=== PATIENT | male | born 1955 | race Caucasian/White ===

== ENCOUNTER 2016-06-10 09:33 | Emergency (ER) | payer MEDICARE, OTHER ==
[~2016-06-10] VITALS: Ht 190.5 cm; Wt 104.5 kg
[~2016-06-10 09:33] MED LIST: ACET-171 PO; ATEN100T PO; BUDE10.2 INHALATION; CALC-235 PO; CHOL400T2 PO; CLOB0.5P MC; CLOB50SO TP; DIPH50C PO; DOCU250C2 PO; HYDR30CR53 RC; KETO200S2 TOP; KLO2T PO; KLO5T PO; LATA2.5D6 OP; LEVA0.318 INHALATION; MONT10TA23 PO; PRIM50TA PO; RABE20TA27 PO; RANI150C4 PO; SENN-153 PO; SERT100T9 PO; SIMV10TA4 PO
[2016-06-10 09:38] VITALS: BP 123/77; PULSE 73; RESP 18; O2SAT 96
[2016-06-10 11:15] LABS: BASOPHILS % (AUTO) 0.4 % (0-3); EOSINOPHILS % (AUTO) 4.5 % (0-5); MONOCYTES % (AUTO) 10.5 % (4-12); Mean Corpuscular Hemoglobin 29.4 pg (27.0-35.0); Mean Corpuscular Volume 85.6 fL (81-100); NEUTROPHILS % (AUTO) 52.2 % (40-74); Platelet Count 242 bil/L (150-400)
[2016-06-10 11:39] LABS: Magnesium 2.1 mg/dL (1.6-2.6)
--- NOTE | 2016-06-10 11:40 | DRSVH ---
PROCEDURE: X-RAY CHEST ONE VIEW, PORTABLE ([id number]) INDICATIONS: possible pneumonia TECHNIQUE: One view of the chest was acquired. COMPARISON: 05/02/2015 FINDINGS: Surgical changes and devices: None. Lungs and pleura: No pleural effusions or pneumothorax. Lungs are clear. Mediastinum: Mediastinal contours appear normal. Heart size is normal. There is probable pericardia l scarring on the right as before. Bones and chest wall: No suspicious bony lesions. Overlying soft tissues appear unremarkable. IMPRESSION: No acute cardiopulmonary abnormality. No pulmonary infiltrates. Dictated by: Shaheen Rosales M.D. on 06/10/2016 at 11:37 Approved by: Shaheen Rosales M.D. on 06/10/2016 at 11:38
[2016-06-10 12:07] VITALS: BP 112/73; PULSE 54; RESP 16; O2SAT 96
--- NOTE | 2016-06-10 13:25 | ED.REPORT ---
HPI-Extremity Problem Lower Date of Service Jun 10, 2016 ED Provider: Benedict Ocampo MD 61yoM with COPD, IBS, GERD and an undiagnosed neurologic condition presents with increasing bilateral leg weakness since 06/05/2016. The patient states that he has had bilateral leg weakness in the past for which he wears foot drop bracing and walks with a walker at baseline. The patient states that he also has left hand issues which involve very poor coordination and jerking movement. 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 intervention which resulted in significantly recovered neurologic function. The patient states that [facility] and was [facility] by the last neurologist because he had numerous tests performed including imaging and EMG without a diagnosis. The patient states that [facility] evaluation of his leg weakness. The patient also has fibromyalgia and states that his current pain level is similar. The patient also describes a cough which he states is chronic in nature due to his COPD. Nursing Notes Stated Complaint: LEG WEAKNESS Chief Complaint: Neuro Symptoms/ Deficits Nursing Notes Reviewed: Yes Allergies: Coded Allergies: amitriptyline (Verified Allergy, Severe, Hallucinations, 05/03/15) dextromethorphan (Verified Allergy, Severe, 05/03/15) patient unsure of reaction guaifenesin (Verified Allergy, Severe, 05/03/15) Patient states there was a reaction with some of his other medications and taking guaifenesin with those other meds caused short term memory loss ibuprofen (Verified Allergy, Severe, Hives, 05/03/15) GI upset metoclopramide (Verified Allergy, Severe, 05/03/15) SEIZURES morphine (Verified Allergy, Severe, hives, redness locally, 05/03/15) tramadol (Verified Allergy, Severe, 05/03/15) GI upset tramadol HCl (Verified Allergy, Intermediate, 05/03/15) GI upset NSAIDS (Non-Steroidal Anti-Inflamma (Verified Allergy, Mild, 05/03/15) GI upset, hives aspirin (Verified Allergy, Mild, 05/03/15) GI, bleeding ulcer. Patient states that he took a coated ASA prior to being admitted on 05/03/15 and didn't have any problems, as long as ASA is not terminal supervisor therapy. dicyclomine (Verified Allergy, Mild, 05/03/15) Patient unsure of reaction pregabalin (Verified Adverse Reaction, Severe, diarrhea, 05/03/15) lorazepam (Verified Adverse Reaction, Unknown, anxiety, 06/10/16) Scheduled Acetaminophen (Acetaminophen) 500 Mg Tablet 1,000 MG PO TID Atenolol (Atenolol) 100 Mg Tablet 100 MG PO DAILY Budesonide/Formoterol 80-4.5 mcg Inh (Symbicort 80-4.5 mcg Inh) 120 Puff Inhaler 2 PUFF INHALATION BID Calcium Carbonate/Vitamin D3 (Calcium 250+D Tablet) 1 Each Tablet 2 EACH PO BID Cholecalciferol (Vitamin D3) (Delta D3) 400 Unit Tablet 2,000 UNIT PO DAILY Clobetasol Propionate (Clobetasol Propionate) 0.5 Gm Powder 0.5 GM MC BID Clonazepam (Clonazepam) 0.5 Mg Tablet 0.5 MG PO MORNING Clonazepam (Clonazepam) 0.5 Mg Tablet 0.5 MG PO DAILYWL Clonazepam (Clonazepam) 2 Mg Tablet 2 MG PO QPM Diphenhydramine Hcl (Benadryl) 50 Mg Capsule 25-50 MG PO Q6H Docusate Sodium (Docusate Sodium) 250 Mg Capsule 250 MG PO BID Hydrocortisone (Hydrocortisone) 30 Gm Cream..g. 30 GM RC BID Ketoconazole (Nizoral A-D) 200 Ml Shampoo 1 APPL TOP DAILY Latanoprost (Latanoprost) 2.5 Ml Drops 1 GTT OP HS Montelukast (Montelukast) 10 Mg Tablet 10 MG PO DAILY Primidone (Primidone) 50 Mg Tablet 100 MG PO BID Rabeprazole DR (Rabeprazole DR) 20 Mg Tablet 40 MG PO BID Ranitidine (Ranitidine) 150 Mg Capsule 150 MG PO HS Sennosides (Evac-U-Gen) 8.6 Mg Tablet 17.2 MG PO BID Sertraline HCl (Sertraline) 100 Mg Tablet 200 MG PO DAILY Simvastatin (Simvastatin) 10 Mg Tablet 5 MG PO HS Scheduled PRN Levalbuterol (Levalbuterol) 0.31 Mg/3 Ml Vial.neb 0.45 MG INHALATION QID PRN PRN For Shortness of Breath Miscellaneous Medications Clobetasol Propionate (Clobetasol Propionate) 50 Ml Solution 50 ML TP General Time Seen by MD: 10:20 Chief Complaint Other (bilateral leg weakness) Hx Obtained From: Patient Arrived By: [facility]), Walk-in Onset Occurred: 5 days ago Risk-Extremity Prob Lower Well's Criteria for DVT Well's DVT Score: 0 pts (low risk 5%) Past Medical History Past Medical History 1. Valdez palsy. 2. Hypertension. 3. GERD. 4. Fibromyalgia. 5. Depression and anxiety. 6. Obstructive sleep apnea. 7. Asthma. 8. Irritable bowel syndrome. 9. Essential tremor. 10. Hyperlipidemia. 11. Glaucoma. 12. COPD Past Surgical History Apparent Rigoberto fundoplication, hemorrhoid surgery, tonsillectomy, and inguinal hernia repair. Neck surgery Family History Noncontributory Smoking History Former Smoker Social History Alcohol Use: "Social" Drug Use: Denies drug use Other Social History: Good social support, Local resident Ambulatory Status Independent Review of Systems Basic Review of Systems Eyes: Vision NL, No discharge ENT: Hearing NL, No pain, No nasal congestion, No pharyngeal pain Respiratory: No shortness of breath, No wheeze Cardiovascular: No chest pain, No dyspnea on exertion, No orthopnea, No parox noct dyspnea, No palpitations GI: No abdominal pain, No anorexia, No nausea, No vomiting : No dysuria, No frequency Hematologic: No bleeding, No bruising Endocrine: No cold intolerance, No heat intolerance, No weight gain Allergy / Immune: No allergy Psychiatric: Normal thought content Constitutional: Denies: Chills, Fever Musculoskeletal: Denies: Back pain, Extremity swelling, Joint pain, Lumbar pain Skin: Denies Bruising, Denies Diaphoresis, Denies Rash, Denies Unexplained bruises Neurologic: Reports: Problem walking, Weakness, Denies: Bladder dysfunction, Bowel dysfunction, Change LOC, Dizziness, Headache, Lightheaded, Spinning sensation, Unable to speak, Vision change Complete sys rev & neg: except as marked. Physical Exam Initial Vital Signs Vital Signs (First) Date Time Temp Pulse Resp B/P Pulse Ox O2 Delivery O2 Flow Rate FiO2 06/10/16 09:38 36.4 73 18 123/77 96 Room Air Initial VS: Reviewed General/Constitutional: Well-developed, Well-nourished Head / Eyes: Atraumatic, Normocephalic, PERRL ENT: Mucous membranes moist, Conjunctiva normal, No scleral icterus Neck: Supple, Non-tender, Full range of motion Respiratory: Breath sounds normal, Clear to auscultation, No respiratory distress Cardiovascular: Regular rate & rhythm, Heart sounds normal, Intact distal pulses Abdomen / GI: Soft, Non-tender, No guarding, No rebound, No distention Back: No CVA tenderness Lymphatic: No lymphadenopathy Upper Extremities: Vascular intact, No swelling, No tenderness Skin: Warm, Dry, No cyanosis Neurologic: Alert, Oriented, Nonfocal Psychiatric: Mood/affect normal, Behavior normal, Normal thought content Lower Extremity / Pelvis / MS: Atraumatic, Inspection NL, Full range of motion , No swelling, Non-tender, No erythema, No deformity, Vascular intact, No circumferential injury, No edema Right Leg / Calf: Negative: Deformity middle, Deformity proximal, Erythema present, Lilaina's sign positive, Swelling present..., Warmth present Left Leg / Calf: Negative: Deformity middle, Deformity proximal, Erythema present, Liliana's sign positive, Swelling present..., Warmth present bilateral weakness in hip flexion 2/5 and knee flexion 3/5 and dorsiflexion 3/5 plantar flexion 4/5, reflexes intact 2/4 at patellar tendon, patient ambulates with walker with slow shuffling gait, calves and quadraceps appear without significant atropy General/Constitutional: Awake, Alert, No acute distress, Well appearing, Well nourished, Cooperative, Not toxic appearing Respiratory / Chest: Breath sounds NL, Breath sounds = bilat, No respiratory distress, No rales, No rhonchi, No wheezing Cardiovascular: Heart rate NL, Regular rhythm, Heart sounds NL, No murmurs, No rubs, Peripheral circulation NL, Pulses = bilaterally Skin: Color NL, Warm, Dry, Intact, Turgor NL, No swelling Neurologic: Oriented X3, Speech NL, No motor deficits, No sensory deficits, CN II - XII intact (grossly), Reflexes equal bilat Focal Weakness: Positive: Foot drop L, Foot drop R, Lower extremity bilat Cerebellar Dysfunction: Positive: Dysdiadochokinesis (with left hand), Finger- nose abnl (with left), Heel-sawyer abnl (unable to preform), Past pointing (with left hand) Movement Abnormality: Positive: Dystonia (most notable in left arm), Tremor - intention Gait Abnormality: Positive: Shuffling gait, Walks with assistance nystagmus most notable in horizontal movment Head / Eyes: Atraumatic, Normocephalic, PERRL, EOMI, No photophobia, No scleral icterus, Conjunctiva NL Eye Movement: Positive: Nystagmus horizontal ENT: Airway patent, Mucous membranes moist, Pharynx NL Abdomen: Atraumatic, Soft, Non-tender, No guarding, No rebound, BS normoactive , No distention Upper Extremity / MS: Atraumatic, No swelling, Non-tender, No erythema, No deformity, Vascular intact Interpretation & Diagnostics Lab Results Interpretation Result Diagram: 06/10/16 1105 06/10/16 1105 Test 06/10/16 11:05 06/10/16 13:00 White Blood Count 7.8th/mm3 (3.8-10.1) Red Blood Count 5.28mil/mm3 (4.40-5.80) Hemoglobin 15.5g/dL (13.8-17.2) Hematocrit 45.2% (41.0-50.0) Mean Corpuscular Volume 85.6fL (81-100) Mean Corpuscular Hemoglobin 29.4pg (27.0-35.0) Mean Corpuscular Hemoglobin Concent 34.3% (32.0-37.0) Red Cell Distribution Width 13.1% (12.3-15.4) Platelet Count 242bil/L (150-400) Neutrophils (%) (Auto) 52.2% (40-74) Lymphocytes (%) (Auto) 32.3% (14-46) Monocytes (%) (Auto) 10.5% (4-12) Eosinophils (%) (Auto) 4.5% (0-5) Basophils (%) (Auto) 0.4% (0-3) Sodium Level 138mEq/L (134-144) Potassium Level 4.5mEq/L (3.5-5.2) Chloride Level 103mEq/L (97-108) Carbon Dioxide Level 23mmol/L (18-29) Blood Urea Nitrogen 7mg/dL (8-27) Creatinine 0.85mg/dL (0.76-1.27) Estimat Glomerular Filtration Rate 98mL/min (>59) Glucose Level 99mg/dL (60-99) Calcium Level 9.0mg/dL (8.5-10.1) Magnesium Level 2.1mg/dL (1.6-2.6) Total Bilirubin 0.4mg/dL (0.0-1.2) Aspartate Amino Transf (AST/SGOT) 25U/L (0-50) Alanine Aminotransferase (ALT/SGPT) 22U/L (0-44) Alkaline Phosphatase 57U/L (25-160) Total Protein 7.3g/dL (6.4-8.4) Albumin 4.2g/dL (3.4-5.0) Procalcitonin 0.07ng/mL (0.00-0.08) Hold Urine Received (Received) X-Ray Chest Interpretation Chest Xray Interpretation: IMPRESSION: No acute cardiopulmonary abnormality. No pulmonary infiltrates. Dictated by: Shaheen Rosales M.D. on 06/10/2016 at 11:37 Approved by: Shaheen Rosales M.D. on 06/10/2016 at 11:38 View: Portable Interpretation / Wet Read by: Interpret - Radiologist Re-Eval/Medical Decision Med Decision/Clinical Course 61yoM with COPD, IBS, GERD and an undiagnosed neurologic condition presents with increasing bilateral leg weakness since 06/05/2016. Patient does not describe stroke like symptoms and has no history of stroke. CMP is negative for electrolyte abnormalities to explain neurologic complaints. CXR negative pneumonia or for lung mass or thymoma shadow causing lambert eaton, NIF test negative for myesthenia gravis Given several prior workups including MR imaging and EMG for this same condition without diagnosis no reason to admit patient today for further life threatening condition. Will discharge patient and [facility]. Source of Hx: Old records, EMS Severity: Non life-threatening Diagnosis Appears: Non-critical Comorbidities: COPD Counseled Regarding: Lab results, Need for follow-up, When/why to return to ED Discharge & Departure Impression: Primary Impression: Bilateral leg weakness Additional Impressions: Tremor, essential Foot drop, bilateral Limb dystonia Ruled Out: Stroke, UTI (urinary tract infection), Electrolyte abnormality, Pneumonia Disposition: Home Discharge Condition All VS Reviewed: Yes Condition: Stable Patient Instructions: Foot Drop (ED) Additional Instructions: During you visit to [facility] Emergency Department we obtained blood work for infectious markers, hemoglobin levels, and electrolytes and checked urine for infection. All your lab values were within normal limits and your imaging showed no acute processes or abnormalities. Given your past medical history and physical exam findings as well as your lab work we could not find a definitive diagnosis for your leg weakness today. It does not appear to be life threatening at this time given your vital signs were stable and safe for discharge. Do not hesitate to call emergency services or your primary care physician if you experience any of the following. - High unrelenting fevers. - Uncontrolled vomiting. - Severe hypertension or hypotension - dizziness or loss of consciousness. - Chest pain or severe shortness of breath. Please follow up with your primary care physician as soon as possible following your emergency department visit for medication checks and general well-being. Referrals: [facility] (PCP) Attending Statement The patient was seen and examined together with Dr. Gomez on 06/10/16 and I agree with the history, exam and plan as outlined in the note above. copies to: [facility] Rodney Eller DO Jun 10, 2016 12:53 Benedict Ocampo MD Jun 10, 2016 16:25
[2016-06-10 13:45] VITALS: BP 111/80; PULSE 58; RESP 15; O2SAT 98
== END 2016-06-10 13:46 | disposition home or self-care (01) ==
LOC: SED 09:33
DX: M21.371 Foot drop, right foot (principal); M21.372 Foot drop, left foot; G24.8 Other dystonia; I10 Essential (primary) hypertension; K21.9 Gastro-esophageal reflux disease without esophagitis; Z87.891 Personal history of nicotine dependence; Z88.5 Allergy status to narcotic agent; Z88.6 Allergy status to analgesic agent; Z88.8 Allergy status to other drugs, medicaments and biological substances